=== PATIENT | female | born 1990 | race Caucasian/White ===

== ENCOUNTER 2017-11-15 16:25 | Emergency (ER) | payer SELFPAY ==
[~2017-11-15] VITALS: Ht 162.6 cm; Wt 73.0 kg
[2017-11-15] MEDS ORDERED: MORPHINE SULFATE 10 MG/ML CPJ IM ONE (17:00)
[2017-11-15] MEDS ORDERED: ONDANSETRON 4MG ODT PO ONE (17:00)
[2017-11-15] MEDS ORDERED: KETOROLAC 30MG/ML VIAL IM ONE (17:00)
[2017-11-15 18:47] LABS: HCG SCREEN NEGATIVE
[2017-11-15 19:43] VITALS: BP 142/96
== END 2017-11-15 19:45 | disposition home or self-care (01) ==
LOC: ER 16:42
DX: M54.2 Cervicalgia (principal); M54.5 Low back pain; V49.49XA Driver injured in collision with other motor vehicles in traffic accident, initial encounter; Y93.89 Activity, other specified; Y92.488 Other paved roadways as the place of occurrence of the external cause; R03.0 Elevated blood-pressure reading, without diagnosis of hypertension
CPT/HCPCS: 72040; 81025; 84703; 96372; 99285; J1885; J2270; Q0162; Z7610